=== PATIENT | female | born 1960 ===

== ENCOUNTER 2018-06-24 08:51 | Observation (INO) | payer MEDICARE, MEDICAID ==
[2018-06-24 08:52] VITALS: BMI 23.3
--- NOTE | 2018-06-24 09:48 | C.PDOC ---
History Of Present Illness 58 y/o F c PMHx ESRD on HD p/w suddenly malfunctioning dialysis catheter. Patient states went to dialysis yesterday as scheduled, could not have dialysis performed as her catheter was not functioning. She denies dyspnea or chest pain. PMD Sulaiman Neely/Roman Time Seen by Provider: 06/24/18 09:16 Chief Complaint (Nursing): Medical Clearance History Per: Patient History/Exam Limitations: no limitations Onset/Duration Of Symptoms: Hrs Current Symptoms Are (Timing): Still Present Recent travel outside of the [place]: No Past Medical History Reviewed: Historical Data, Nursing Documentation, Vital Signs Vital Signs: Last Vital Signs Temp 98.2 F 06/24/18 08:59 Pulse 88 06/24/18 08:59 Resp 18 06/24/18 08:59 BP 189/104 H 06/24/18 08:59 Pulse Ox 100 06/24/18 08:59 - Medical History PMH: Anemia, Diabetes, HTN, End Stage Renal Disease, Chronic Kidney Disease, Seizures, TIA Denies: Arthritis, CHF, COPD, HIV, Hypercholesterolemia, Hypothyroidism, Rheumatoid Arthritis Surgical History: Denies: Pacemaker - [facility] APPLIC OF EXTERNAL FIXATOR DEVICE, CARPALS AND METACARPALS (10/18/13) CL FX REDUC-METACAR/CAR (10/18/13) ESOPHAGOGASTRODUODENOSCOPY [EGD] W/CLOSED BIOPSY (03/12/13) HEMODIALYSIS (06/25/14) PERFORMANCE OF URINARY FILTRATION, MULTIPLE (01/12/16) PERFORMANCE OF URINARY FILTRATION, SINGLE (05/18/16) VENOUS CATHETERIZATION FOR RENAL DIALYSIS (11/12/13) Family History: States: Unknown Family Hx - Social History Hx Tobacco Use: No Hx Alcohol Use: No Hx Substance Use: No - Immunization History Hx Tetanus Toxoid Vaccination: No Hx Influenza Vaccination: Yes Hx Pneumococcal Vaccination: Yes Review Of Systems Except As Marked, All Systems Reviewed And Found Negative. Constitutional: Negative for: Fever Cardiovascular: Negative for: Chest Pain Physical Exam - Physical Exam Additional Physical Exam Comments: gen nad head nc eyes no icterus ent mmm neck supple cv reg rate extremities no tenderness skin no rash neuro alert ED Course And Treatment - Laboratory Results Result Diagrams: 06/24/18 10:16 06/24/18 10:16 O2 Sat by Pulse Oximetry: 100 (RA) Pulse Ox Interpretation: Normal Medical Decision Making Medical Decision Making: Progress/Update: 10:49am : Spoke with Dr. Martinez regarding the pt's case. He will order CathFlo. Dr. Fraser ordered dialysis. Dr. Doan accepts patient to medical service. Disposition - Disposition Disposition: HOSPITALIZED Disposition Time: 10:30 Condition: GOOD Forms: [facility] (German) - Clinical Impression Clinical Impression: End stage renal disease, Dialysis catheter clot or failure
--- NOTE | 2018-06-24 10:04 | CP.PCM.CON ---
History of Present Illness - History of Present Illness History of Present Illness: 58 y/o F c PMHx ESRD on HD p/w malfunctioning dialysis catheter. Patient states went to dialysis yesterday as scheduled, could not have dialysis performed as her catheter was not functioning. [facility] Recently enio ligated for steal syndrome with ischemia to digits of right hand. She denies dyspnea or chest pain. No n/v/d. No headache or weakness. No recent illness other than issues related ti access. 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 Receives dialysis at [facility] m,w,f Review of Systems - Constitutional Constitutional: absent: Fever, Lethargy, Malaise - EENT Eyes: absent: Discharge, Dry Eye, Pain Ears: absent: Tinnitus, Dizziness Nose/Mouth/Throat: absent: Nasal Congestion, Nasal Trauma, Nose Pain, Dental Pain - Cardiovascular Cardiovascular: absent: Chest Pain, Dyspnea, Edema - Respiratory Respiratory: absent: Cough, Dyspnea, Wheezing, Stridor - Gastrointestinal Gastrointestinal: absent: Abdominal Pain, Constipation, Cramping, Diarrhea - Genitourinary Genitourinary: absent: Dysuria, Hematuria - Musculoskeletal Musculoskeletal: Muscle Weakness. absent: Muscle Cramps, Neck Pain - Integumentary Integumentary: absent: Pruritus, Rash Additional comments: right hand chronic ischemia - Neurological Neurological: absent: Confusion, Syncope, Tremor - Endocrine Endocrine: Fatigue. absent: Heat Intolorance, Palpitations - Hematologic/Lymphatic Hematologic: absent: Easy Bleeding, Easy Bruising Past Patient History - Tetanus Immunizations Tetanus Immunization: Unknown - Past Medical History & Family History Past Medical History?: Yes - Past Social History Smoking Status: Never Smoked - CARDIAC Hx Congestive Heart Failure: No Hx Hypercholesterolemia: No Hx Hypertension: Yes Hx Pacemaker: No - PULMONARY Hx Chronic Obstructive Pulmonary Disease (COPD): No - NEUROLOGICAL Hx Seizures: Yes Hx Transient Ischemic Attacks (TIA): Yes - HEENT Hx HEENT Problems: Yes - RENAL Hx Chronic Kidney Disease: Yes - ENDOCRINE/METABOLIC Hx Hypothyroidism: No - HEMATOLOGICAL/ONCOLOGICAL Hx Anemia: Yes Hx Human Immunodeficiency Virus (HIV): No - INTEGUMENTARY Hx Dermatological Problems: No - MUSCULOSKELETAL/RHEUMATOLOGICAL Hx Arthritis: No Hx Rheumatoid Arthritis: No - GASTROINTESTINAL Hx Gastrointestinal Disorders: No - GENITOURINARY/GYNECOLOGICAL Hx Genitourinary Disorders: No - PSYCHIATRIC Hx Substance Use: No - SURGICAL HISTORY Hx Surgeries: Yes Other/Comment: left toes amputation 2011. Rt. arm fistula 2003. kidney transplant in 2005. plastic surgery both eyelids mar 1995 - ANESTHESIA Hx Anesthesia: Yes Hx Anesthesia Reactions: No Hx Malignant Hyperthermia: No Meds Allergies/Adverse Reactions: Allergies Allergy/AdvReac Type Severity Reaction Status Date / Time bleach Allergy Intermediate ITCHING Uncoded 06/24/18 09:01 Physical Exam - Constitutional Appears: Non-toxic, Older Than Stated Age, Chronically Ill - Head Exam Head Exam: ATRAUMATIC, NORMAL INSPECTION - Eye Exam Eye Exam: EOMI, Normal appearance - ENT Exam ENT Exam: Mucous Membranes Moist, Normal Oropharynx - Neck Exam Neck exam: Positive for: Normal Inspection. Negative for: Lymphadenopathy, Thyromegaly - Respiratory Exam Respiratory Exam: Clear to Auscultation Bilateral. absent: Rales, Rhonchi - Cardiovascular Exam Cardiovascular Exam: +S1, +S2, Systolic Murmur - GI/Abdominal Exam GI & Abdominal Exam: Normal Bowel Sounds, Soft - Extremities Exam Extremities exam: Negative for: joint swelling, pedal edema - Back Exam Back exam: absent: rash noted, tenderness - Neurological Exam Neurological exam: Alert, Oriented x3 - Psychiatric Exam Psychiatric exam: Normal Affect, Normal Mood - Skin Skin Exam: Dry, Intact Additional comments: Chronic hand skin changes on right Results - Vital Signs Recent Vital Signs: Last Vital Signs Temp 98.2 F 06/24/18 08:59 Pulse 88 06/24/18 08:59 Resp 18 06/24/18 08:59 BP 189/104 H 06/24/18 08:59 Pulse Ox 100 06/24/18 09:48 Assessment & Plan (1) Diabetes Status: Acute (2) Problem with dialysis access Status: Acute (3) Steal syndrome of dialysis vascular access Status: Acute (4) Anemia in ESRD (end-stage renal disease) Status: Acute (5) End stage renal disease Status: Chronic Priority: High (6) Hypertension Status: Chronic Priority: Medium - Assessment and Plan (Free Text) Assessment: Dialysis catheter failure Vascular eval for dialysis access Dialysis today - discussed with dialysis unit Monitor bp Labs requested in ed Further plan once dialysis complete
[2018-06-24 10:23] LABS: BASO # 0.2 K/uL (0.0-0.2); BASO % 3.3 % (0.0-2.0); EOS # 0.2 K/uL (0.0-0.7); EOS % 4.4 % (0.0-4.0); HEMOGLOBIN 12.3 g/dL (11.0-16.0); LYMPH # 1.6 K/uL (1.0-4.3); LYMPH % 29.7 % (20.0-40.0); MEAN CELL VOLUME 83.2 fL (81.0-99.0); MEAN CORPUSCULAR HEMOGLOBIN 27.2 pg (27.0-31.0); MEAN CORPUSCULAR HGB CONC 32.7 g/dL (33.0-37.0); MEAN PLATELET VOLUME 7.5 fL (7.2-11.7); MONO # 0.7 K/uL (0.0-0.8); MONO % 12.5 % (0.0-10.0); NEUT # 2.7 K/uL (1.8-7.0); NEUT % 50.1 % (50.0-75.0); NRBC % 0.2 % (0.0-2.0); PLATELET COUNT 163 K/uL (130-400); RBC 4.51 Mil/uL (3.80-5.20); WHITE BLOOD COUNT 5.3 K/uL (4.8-10.8)
[2018-06-24 10:33] LABS: INR 1.1; PROTHROMBIN TIME 12.2 SECONDS (9.7-12.2)
[2018-06-24 10:37] LABS: ALB/GLOB RATIO 1.3 (1.0-2.1); CALCIUM 10.2 mg/dl (8.6-10.4)
[2018-06-24 11:33] LABS: BASOPHIL 3 % (0-2); EOSINOPHIL 5 % (0-4); LYMPHOCYTE 31 % (20-40); MONOCYTE 14 % (0-10); NEUTROPHIL 47 % (50-75); TOTAL CELLS COUNTED 100
--- NOTE | 2018-06-24 11:33 | CP.PCM.CON ---
History of Present Illness - History of Present Illness History of Present Illness: Vascular Surgery Consult for Dr. Martinez Reason for consult: HD catheter malfunction 58F with PMH that includes ESRD on HD (MWF) who presents to [facility] for complaint of malfunctioning HD catheter. Patient was seen and evaluated in the ED. Patient states that she went to dialysis yesterday and was unable to complete her full session. Patient had permacath placed on 06/13. She has had four sessions of dialysis without any issues until yesterday. Patient has no other complaints at this time. PMH: Anemia, Diabetes, HTN, End Stage Renal Disease on HD, Seizures, TIA PSH: hand surgery, permacath ALL: bleach Review of Systems - Review of Systems All systems: reviewed and no additional remarkable complaints except (as per hpi) Past Patient History - Tetanus Immunizations Tetanus Immunization: Unknown - Past Medical History & Family History Past Medical History?: Yes - Past Social History Smoking Status: Never Smoked - CARDIAC Hx Congestive Heart Failure: No Hx Hypercholesterolemia: No Hx Hypertension: Yes Hx Pacemaker: No - PULMONARY Hx Chronic Obstructive Pulmonary Disease (COPD): No - NEUROLOGICAL Hx Seizures: Yes Hx Transient Ischemic Attacks (TIA): Yes - HEENT Hx HEENT Problems: Yes - RENAL Hx Chronic Kidney Disease: Yes - ENDOCRINE/METABOLIC Hx Hypothyroidism: No - HEMATOLOGICAL/ONCOLOGICAL Hx Anemia: Yes Hx Human Immunodeficiency Virus (HIV): No - INTEGUMENTARY Hx Dermatological Problems: No - MUSCULOSKELETAL/RHEUMATOLOGICAL Hx Arthritis: No Hx Rheumatoid Arthritis: No - GASTROINTESTINAL Hx Gastrointestinal Disorders: No - GENITOURINARY/GYNECOLOGICAL Hx Genitourinary Disorders: No - PSYCHIATRIC Hx Substance Use: No - SURGICAL HISTORY Hx Surgeries: Yes Other/Comment: left toes amputation 2011. Rt. arm fistula 2003. kidney transplant in 2005. plastic surgery both eyelids mar 1995 - ANESTHESIA Hx Anesthesia: Yes Hx Anesthesia Reactions: No Hx Malignant Hyperthermia: No Meds Allergies/Adverse Reactions: Allergies Allergy/AdvReac Type Severity Reaction Status Date / Time bleach Allergy Intermediate ITCHING Uncoded 06/24/18 09:01 - Medications Medications: Current Medications Alteplase, Recombinant (Cathflo 2 Mg Inj) 4 mg IV ONCE ONE Stop: 06/24/18 11:29 Physical Exam - Constitutional Appears: No Acute Distress - Head Exam Head Exam: ATRAUMATIC, NORMOCEPHALIC - Eye Exam Eye Exam: EOMI Pupil Exam: PERRL - ENT Exam ENT Exam: Mucous Membranes Moist - Respiratory Exam Respiratory Exam: NORMAL BREATHING PATTERN Additional comments: R sided permacath on chest - Cardiovascular Exam Cardiovascular Exam: REGULAR RHYTHM - GI/Abdominal Exam GI & Abdominal Exam: Soft. absent: Tenderness - Extremities Exam Extremities exam: Positive for: normal capillary refill. Negative for: calf tenderness - Back Exam Back exam: absent: CVA tenderness (L), CVA tenderness (R) - Neurological Exam Neurological exam: Alert, Oriented x3 - Psychiatric Exam Psychiatric exam: Normal Affect, Normal Mood - Skin Skin Exam: Dry, Intact, Warm Results - Vital Signs Recent Vital Signs: Last Vital Signs Temp 98.2 F 06/24/18 08:59 Pulse 88 06/24/18 08:59 Resp 18 06/24/18 08:59 BP 189/104 H 06/24/18 08:59 Pulse Ox 100 06/24/18 10:49 - Labs Result Diagrams: 06/24/18 10:16 06/24/18 10:16 Labs: Laboratory Results - last 24 hr 06/24/18 06/24/18 06/24/18 10:16 10:16 10:16 WBC 5.3 RBC 4.51 Hgb 12.3 Hct 37.6 MCV 83.2 MCH 27.2 MCHC 32.7 L RDW 17.0 H Plt Count 163 MPV 7.5 Neut % (Auto) 50.1 Lymph % (Auto) 29.7 [place] % (Auto) 12.5 H Eos % (Auto) 4.4 H Baso % (Auto) 3.3 H Neut # (Auto) 2.7 Lymph # (Auto) 1.6 [place] # (Auto) 0.7 Eos # (Auto) 0.2 Baso # (Auto) 0.2 PT 12.2 INR 1.1 APTT 36.0 H Sodium 138 Potassium 5.6 H Chloride 97 L Carbon Dioxide 28 Anion Gap 18 BUN 45 H Creatinine 6.7 H Est GFR ( Amer) 8 Est GFR (Non-Af Amer) 6 Random Glucose 140 H D Calcium 10.2 Phosphorus 6.1 H Magnesium 2.1 Total Bilirubin 0.9 AST 19 ALT 7 L D Alkaline Phosphatase 105 Total Protein 9.0 H Albumin 5.0 D Globulin 4.0 H Albumin/Globulin Ratio 1.3 Blood Type Antibody Screen 06/24/18 10:16 WBC RBC Hgb Hct MCV MCH MCHC RDW Plt Count MPV Neut % (Auto) Lymph % (Auto) [place] % (Auto) Eos % (Auto) Baso % (Auto) Neut # (Auto) Lymph # (Auto) [place] # (Auto) Eos # (Auto) Baso # (Auto) PT INR APTT Sodium Potassium Chloride Carbon Dioxide Anion Gap BUN Creatinine Est GFR ( Amer) Est GFR (Non-Af Amer) Random Glucose Calcium Phosphorus Magnesium Total Bilirubin AST ALT Alkaline Phosphatase Total Protein Albumin Globulin Albumin/Globulin Ratio Blood Type O POSITIVE Antibody Screen Negative Assessment & Plan - Assessment and Plan (Free Text) Assessment: 58 F with ESRD on hD MWF presents for malfunctioning HD catheter Plan: -Cathflo through both ports -if cathflo does not work then OR 06/25 -NPO past MN -F/u Nephrology -Resume dialysis after catheter is functioning -Discussed with Dr. Michelle Nguyễn PGY2 - Date & Time Date: 06/24/18 Time: 12:00
[2018-06-24 11:34] LABS: PLATELET ESTIMATE NORMAL (NORMAL)
[2018-06-24 11:35] LABS: ANISOCYTOSIS SLIGHT; OVALOCYTES SLIGHT; POLYCHROMIC SLIGHT; TEARDROP CELLS SLIGHT
[2018-06-24] MEDS ORDERED: Dextrose 50% SYRINGE Inj (50 ml) IV PRN (16:45)
[2018-06-24] MEDS ORDERED: Glucagon Recombinant 1 mg Inj IM PRN (16:45)
[2018-06-24] MEDS: (Novolog) Insulin Aspart, Recombinant 100 u/ml 10 ml vial SC SCH ×3 (18:00→22:00)
--- NOTE | 2018-06-24 18:05 | CP.PCM.HP ---
History of Present Illness - History of Present Illness History of Present Illness: 58-year-old female with history of anemia history of came in because of suddenly malfunctioning dialysis catheter which was working on the previous dialysis ( TUE_TUE_TUE eventually patient had to come to the emergency room as dialysis did not work so vascular study and call possible change in the catheter if Cathflo will not work eventually patient seen by Dr. templeton Patient was dialyzed for [address] Souza and Dr. Stewart made aware Potassium 5.6 Creatinine 6.7 12 points reviwe of system reviweed not remakrable PMH: Anemia, Diabetes, HTN, End Stage Renal Disease on HD, Seizures, TIA PSH: hand surgery, permacath ALL: bleach Present on Admission - Present on Admission Any Indicators Present on Admission: No Past Patient History - Tetanus Immunizations Tetanus Immunization: Unknown - Past Medical History & Family History Past Medical History?: Yes - Past Social History Smoking Status: Never Smoked - CARDIAC Hx Congestive Heart Failure: No Hx Hypercholesterolemia: No Hx Hypertension: Yes Hx Pacemaker: No - PULMONARY Hx Chronic Obstructive Pulmonary Disease (COPD): No - NEUROLOGICAL Hx Seizures: Yes Hx Transient Ischemic Attacks (TIA): Yes - HEENT Hx HEENT Problems: Yes - RENAL Hx Chronic Kidney Disease: Yes - ENDOCRINE/METABOLIC Hx Hypothyroidism: No - HEMATOLOGICAL/ONCOLOGICAL Hx Anemia: Yes Hx Human Immunodeficiency Virus (HIV): No - INTEGUMENTARY Hx Dermatological Problems: No - MUSCULOSKELETAL/RHEUMATOLOGICAL Hx Arthritis: No Hx Rheumatoid Arthritis: No - GASTROINTESTINAL Hx Gastrointestinal Disorders: No - GENITOURINARY/GYNECOLOGICAL Hx Genitourinary Disorders: No - PSYCHIATRIC Hx Substance Use: No - SURGICAL HISTORY Hx Surgeries: Yes Other/Comment: left toes amputation 2011. Rt. arm fistula 2003. kidney transplant in 2005. plastic surgery both eyelids mar 1995 - ANESTHESIA Hx Anesthesia: Yes Hx Anesthesia Reactions: No Hx Malignant Hyperthermia: No Meds Allergies/Adverse Reactions: Allergies Allergy/AdvReac Type Severity Reaction Status Date / Time bleach Allergy Intermediate ITCHING Uncoded 06/24/18 09:01 Physical Exam - Constitutional Appears: Well - Head Exam Head Exam: ATRAUMATIC, NORMAL INSPECTION, NORMOCEPHALIC - Eye Exam Eye Exam: EOMI, Normal appearance, PERRL Pupil Exam: NORMAL ACCOMODATION, PERRL - ENT Exam ENT Exam: Mucous Membranes Moist, Normal Exam - Neck Exam Neck exam: Positive for: Normal Inspection - Respiratory Exam Respiratory Exam: Decreased Breath Sounds - Cardiovascular Exam Cardiovascular Exam: REGULAR RHYTHM, +S1, +S2 - GI/Abdominal Exam GI & Abdominal Exam: Diminished Bowel Sounds, Soft - Rectal Exam Rectal Exam: Deferred - Neurological Exam Neurological exam: Oriented x3 Results - Vital Signs Recent Vital Signs: Last Vital Signs Temp 98.3 F 06/24/18 15:52 Pulse 87 06/24/18 15:52 Resp 20 06/24/18 15:52 BP 180/78 H 06/24/18 17:31 Pulse Ox 94 L 06/24/18 15:52 - Labs Result Diagrams: 06/24/18 10:16 06/24/18 10:16 Labs: Laboratory Results - last 24 hr 06/24/18 06/24/18 06/24/18 10:16 10:16 10:16 WBC 5.3 RBC 4.51 Hgb 12.3 Hct 37.6 MCV 83.2 MCH 27.2 MCHC 32.7 L RDW 17.0 H Plt Count 163 MPV 7.5 Neut % (Auto) 50.1 Lymph % (Auto) 29.7 [place] % (Auto) 12.5 H Eos % (Auto) 4.4 H Baso % (Auto) 3.3 H Neut # (Auto) 2.7 Lymph # (Auto) 1.6 [place] # (Auto) 0.7 Eos # (Auto) 0.2 Baso # (Auto) 0.2 Neutrophils % (Manual) 47 L Lymphocytes % (Manual) 31 Monocytes % (Manual) 14 H Eosinophils % (Manual) 5 H Basophils % (Manual) 3 H Platelet Estimate Normal Polychromasia Slight Anisocytosis (manual) Slight Tear Drop Cells Slight Ovalocytes Slight PT 12.2 INR 1.1 APTT 36.0 H Sodium 138 Potassium 5.6 H Chloride 97 L Carbon Dioxide 28 Anion Gap 18 BUN 45 H Creatinine 6.7 H Est GFR ( Amer) 8 Est GFR (Non-Af Amer) 6 POC Glucose (mg/dL) Random Glucose 140 H D Calcium 10.2 Phosphorus 6.1 H Magnesium 2.1 Total Bilirubin 0.9 AST 19 ALT 7 L D Alkaline Phosphatase 105 Total Protein 9.0 H Albumin 5.0 D Globulin 4.0 H Albumin/Globulin Ratio 1.3 Blood Type Antibody Screen 06/24/18 06/24/18 10:16 16:27 WBC RBC Hgb Hct MCV MCH MCHC RDW Plt Count MPV Neut % (Auto) Lymph % (Auto) [place] % (Auto) Eos % (Auto) Baso % (Auto) Neut # (Auto) Lymph # (Auto) [place] # (Auto) Eos # (Auto) Baso # (Auto) Neutrophils % (Manual) Lymphocytes % (Manual) Monocytes % (Manual) Eosinophils % (Manual) Basophils % (Manual) Platelet Estimate Polychromasia Anisocytosis (manual) Tear Drop Cells Ovalocytes PT INR APTT Sodium Potassium Chloride Carbon Dioxide Anion Gap BUN Creatinine Est GFR ( Amer) Est GFR (Non-Af Amer) POC Glucose (mg/dL) 153 H Random Glucose Calcium Phosphorus Magnesium Total Bilirubin AST ALT Alkaline Phosphatase Total Protein Albumin Globulin Albumin/Globulin Ratio Blood Type O POSITIVE Antibody Screen Negative Assessment & Plan (1) Diabetes Status: Acute (2) Dialysis catheter clot or failure Status: Acute (3) Problem with dialysis access Status: Acute (4) Steal syndrome of dialysis vascular access Status: Acute (5) End stage renal disease Status: Chronic Priority: High (6) Anemia in ESRD (end-stage renal disease) Status: Acute (7) Headache Status: Acute (8) Hyperkalemia Status: Acute (9) Hypoglycemia Status: Acute (10) Late effect of lacunar infarction Status: Acute (11) Renal failure Status: Acute (12) Renal failure, chronic Status: Acute (13) Sepsis Status: Acute (14) Transient alteration of awareness Status: Acute (15) Transient arterial occlusion Status: Acute Priority: High (16) Transient ischemic attack with other course Status: Inactive Priority: High (17) Wrist fracture Status: Inactive (18) Wrist fracture, right Status: Inactive (19) Anemia Status: Chronic Priority: Medium (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 Fraser met in order for the dialysis Status post 2 hours of dialysis Continue hemodialysis Medication seen Moderate complexity of care May need to change catheter if it will not work Medications reviewed Amlodipine Sensipar PhosLo Renal diet Insulin glargine glargine and aspart
[2018-06-24] MEDS: (Lantus) Insulin Glargine, Recombinant SC SCH (21:35)
--- NOTE | 2018-06-24 23:01 | CON ---
DATE: 06/24/2018 HISTORY OF PRESENT ILLNESS: The patient is seen on an emergency basis in the emergency room at [facility] for evaluation of a clotted or a nonfunctioning catheter. The patient has been on dialysis for a number of years. She had a fistula in the right arm. She recently ligated because she developed ischemic changes of her hand after being utilized for many years. Presently, dialyzed with catheter which has been placed at another hospital. She came here this morning and no preparations unfortunately were made. Thus, we have to improvise and see what is the potassium level. PHYSICAL EXAMINATION GENERAL: She is a thin woman. She has a failed kidney transplant. She has an old access in her arm. She has a catheter on the right side. She looks somewhat cushioned. Catheter does not have good flow. PLAN: The patient has clotted catheter. We will schedule for surgery tomorrow. In the meantime, we will apply TPA in an attempt to open this up and see what we can do to improve the situation. René Martinez Jr., MD [email or web address]
--- NOTE | 2018-06-25 05:16 | CP.PCM.PN ---
Subjective - Date & Time of Evaluation Date of Evaluation: 06/25/18 Time of Evaluation: 05:14 - Subjective Subjective: Surgery Progress Note- Dr. Martinez No new complaints. Received 2hrs of Dialysis yesterday via permacath s/p Cathflo. Throughout dialysis pull became slower however tolerated well. Denies fevers, chills chest pain. Objective - Vital Signs/Intake and Output Vital Signs (last 24 hours): Temp Pulse Resp BP Pulse Ox 98.8 F 72 20 122/74 97 06/25/18 00:00 06/25/18 00:00 06/25/18 00:00 06/25/18 00:00 06/25/18 00:00 - Medications Medications: Current Medications Alteplase, Recombinant (Cathflo 2 Mg Inj) 4 mg IV ONCE ONE Stop: 06/25/18 05:12 Amlodipine Besylate (Norvasc) 10 mg PO DAILY PENDING SALE TO [facility] Calcium Acetate (Phoslo) 667 mg PO TID PENDING SALE TO [facility] Last Admin: 06/24/18 17:31 Dose: 667 mg Carvedilol (Coreg) 25 mg PO BID PENDING SALE TO [facility] Last Admin: 06/24/18 17:31 Dose: 25 mg Cinacalcet (Sensipar) 30 mg PO DAILY PENDING SALE TO [facility] Clonidine HCl (Catapres) 0.3 mg PO HS PENDING SALE TO [facility] Last Admin: 06/24/18 21:34 Dose: 0.3 mg Dextrose (Dextrose 50% Inj) 0 ml IV STAT PRN; Protocol PRN Reason: Hypoglycemia Protocol Dextrose (Glutose 15) 0 gm PO ONCE PRN; Protocol PRN Reason: Hypoglycemia Protocol Glucagon (Glucagen Diagnostic Kit) 0 mg IM STAT PRN; Protocol PRN Reason: Hypoglycemia Protocol Heparin Sodium (Porcine) (Heparin) 5,000 units SC Q12 PENDING SALE TO [facility] Last Admin: 06/24/18 21:36 Dose: 5,000 units Dextrose (Dextrose 5% In Water 1000 Ml) 1,000 mls @ 0 mls/hr IV .Q0M PRN; Protocol PRN Reason: Hypoglycemia Protocol Insulin Aspart (Novolog) 0 unit SC [facility] PENDING SALE TO [facility]; Protocol Last Admin: 06/24/18 21:37 Dose: Not Given Insulin Aspart (Novolog) 0 unit SC [facility] PENDING SALE TO [facility]; Protocol Last Admin: 06/24/18 22:00 Dose: Not Given Insulin Glargine (Lantus) 8 unit SC [facility] Last Admin: 06/24/18 21:35 Dose: 8 units - Labs Labs: 06/24/18 10:16 06/24/18 10:16 PT 12.2 SECONDS (9.7-12.2) 06/24/18 10:16 INR 1.1 06/24/18 10:16 APTT 36.0 SECONDS (21-34) H 06/24/18 10:16 - Constitutional Appears: Non-toxic, No Acute Distress - Head Exam Head Exam: ATRAUMATIC - Eye Exam Eye Exam: EOMI. absent: Scleral icterus - ENT Exam ENT Exam: Mucous Membranes Moist - Neck Exam Additional comments: Permacath in place - Respiratory Exam Respiratory Exam: NORMAL BREATHING PATTERN. absent: Accessory Muscle Use, Respiratory Distress - Cardiovascular Exam Cardiovascular Exam: REGULAR RHYTHM. absent: Bradycardia, Tachycardia - GI/Abdominal Exam GI & Abdominal Exam: Soft. absent: Distended, Rigid, Tenderness - Neurological Exam Neurological Exam: Alert, Awake, Oriented x3 - Skin Skin Exam: Intact, Warm Assessment and Plan - Assessment and Plan (Free Text) Assessment: 58F ESRD on Dialysis w/ malfunctioning permacath Plan: - will use cathflo 1 more time - plan for Permacath exchange on 06/26 - continued management per primary team - discussed w/ Dr. Martinez Surgical attending Merchant [email or web address]
[2018-06-25] MEDS: (Novolog) Insulin Aspart, Recombinant 100 u/ml 10 ml vial SC SCH ×6 (07:47→22:24)
--- NOTE | 2018-06-25 19:17 | CP.PCM.PN ---
Subjective - Date & Time of Evaluation Date of Evaluation: 06/25/18 Time of Evaluation: 09:20 - Subjective Subjective: No nausea No vomiting no fever sleeping woke he rup Objective - Vital Signs/Intake and Output Vital Signs (last 24 hours): Temp Pulse Resp BP Pulse Ox 98.3 F 67 20 162/80 H 96 06/25/18 16:00 06/25/18 16:00 06/25/18 16:00 06/25/18 17:39 06/25/18 16:37 Intake and Output: 06/25/18 06/26/18 18:59 06:59 Intake Total 480 Balance 480 - Medications Medications: Current Medications Amlodipine Besylate (Norvasc) 10 mg PO DAILY [facility] Last Admin: 06/25/18 10:12 Dose: 10 mg Calcium Acetate (Phoslo) 667 mg PO TID [facility] Last Admin: 06/25/18 17:39 Dose: 667 mg Carvedilol (Coreg) 25 mg PO BID [facility] Last Admin: 06/25/18 17:39 Dose: 25 mg Cinacalcet (Sensipar) 30 mg PO DAILY [facility] Last Admin: 06/25/18 10:12 Dose: 30 mg Clonidine HCl (Catapres) 0.3 mg PO HS [facility] Last Admin: 06/24/18 21:34 Dose: 0.3 mg Dextrose (Dextrose 50% Inj) 0 ml IV STAT PRN; Protocol PRN Reason: Hypoglycemia Protocol Dextrose (Glutose 15) 0 gm PO ONCE PRN; Protocol PRN Reason: Hypoglycemia Protocol Glucagon (Glucagen Diagnostic Kit) 0 mg IM STAT PRN; Protocol PRN Reason: Hypoglycemia Protocol Heparin Sodium (Porcine) (Heparin) 5,000 units SC Q12 [facility] Last Admin: 06/25/18 10:12 Dose: 5,000 units Dextrose (Dextrose 5% In Water 1000 Ml) 1,000 mls @ 0 mls/hr IV .Q0M PRN; Teresa col PRN Reason: Hypoglycemia Protocol Insulin Aspart (Novolog) 0 unit SC ACHS [facility]; Protocol Last Admin: 06/25/18 17:10 Dose: Not Given Insulin Glargine (Lantus) 8 unit SC HS [facility] Last Admin: 06/24/18 21:35 Dose: 8 units - Labs Labs: 06/24/18 10:16 06/24/18 10:16 PT 12.2 SECONDS (9.7-12.2) 06/24/18 10:16 INR 1.1 06/24/18 10:16 APTT 36.0 SECONDS (21-34) H 06/24/18 10:16 - Constitutional Appears: Well - Head Exam Head Exam: ATRAUMATIC, NORMAL INSPECTION, NORMOCEPHALIC - Eye Exam Eye Exam: EOMI, Normal appearance, PERRL Pupil Exam: NORMAL ACCOMODATION, PERRL - ENT Exam ENT Exam: Mucous Membranes Moist, Normal Exam - Neck Exam Neck Exam: Full ROM, Normal Inspection. 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 Status: Acute (5) End stage renal disease Status: Chronic (6) Anemia in ESRD (end-stage renal disease) Status: Acute (7) Headache Status: Acute (8) Hyperkalemia Status: Acute (9) Hypoglycemia Status: Acute (10) Late effect of lacunar infarction Status: Acute (11) Renal failure Status: Acute (12) Renal failure, chronic Status: Acute (13) Sepsis Status: Acute (14) Transient alteration of awareness Status: Acute (15) Transient arterial occlusion Status: Acute (16) Anemia Status: Chronic (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, managed as type 2 Status: Chronic (18) End stage renal disease on dialysis Status: Chronic (19) Hyperglycemia Status: Chronic (20) Hypertension Status: Chronic (21) Peripheral motor neuropathy Status: Chronic (22) Type 2 diabetes mellitus Status: Chronic - Assessment and Plan (Free Text) Plan: No fever patient received 2 hours of dialysis yesterday no need to change christine ter status post [id number] patient claims somebody also came in for the medicine and the catheter Cathflo again done today If patient's catheter work nicely will consider discharging the patient home Follow-up with vascular surgery Follow-up with the renal Moderate complexity of care Plan of care discussed with the patient's No family member at bedside vitals reviewed labs reviewed medications reviewed catapress coreg dextrose glucagen diagnostic kit glutose 15 heparin lantus [facility] novolog phoslo sensipar
[2018-06-25] MEDS: (Lantus) Insulin Glargine, Recombinant SC SCH (22:25)
[2018-06-26 06:44] LABS: BLOOD UREA NITROGEN 41 mg/dL (7-17); CALCIUM 9.4 mg/dl (8.6-10.4); GFR NON-AFRICAN AMERICAN 6
[2018-06-26 06:45] LABS: INR 1.1
[2018-06-26 07:34] LABS: BASO # 0.1 K/uL (0.0-0.2); EOS # 0.2 K/uL (0.0-0.7); HEMOGLOBIN 11.1 g/dL (11.0-16.0); LYMPH # 1.6 K/uL (1.0-4.3); LYMPH % 42.5 % (20.0-40.0); MEAN CELL VOLUME 82.4 fL (81.0-99.0); MEAN CORPUSCULAR HEMOGLOBIN 26.7 pg (27.0-31.0); MEAN CORPUSCULAR HGB CONC 32.4 g/dL (33.0-37.0); MEAN PLATELET VOLUME 7.6 fL (7.2-11.7); MONO # 0.4 K/uL (0.0-0.8); MONO % 11.9 % (0.0-10.0); NEUT # 1.3 K/uL (1.8-7.0); NEUT % 35.6 % (50.0-75.0); NRBC % 0.1 % (0.0-2.0); PLATELET COUNT 149 K/uL (130-400); RBC 4.14 Mil/uL (3.80-5.20); RED CELL DISTRIBUTION WIDTH 16.4 % (11.5-14.5); WHITE BLOOD COUNT 3.7 K/uL (4.8-10.8)
[2018-06-26] MEDS: (Novolog) Insulin Aspart, Recombinant 100 u/ml 10 ml vial SC SCH ×3 (08:13→17:40)
[2018-06-26 08:54] LABS: ANISOCYTOSIS SLIGHT; BASOPHIL 3 % (0-2); EOSINOPHIL 8 % (0-4); HYPOCHROMIC SLIGHT; LYMPHOCYTE 49 % (20-40); MONOCYTE 11 % (0-10); NEUTROPHIL 29 % (50-75); PLATELET ESTIMATE NORMAL (NORMAL); POIKILOCYTOSIS SLIGHT; TOTAL CELLS COUNTED 100
--- NOTE | 2018-06-26 12:18 | CP.PCM.PN ---
Subjective - Date & Time of Evaluation Date of Evaluation: 06/26/18 Time of Evaluation: 12:15 - Subjective Subjective: s/p 2 hours dialysis 06/24 TPA given now seen on dialysis- UF 2500ml tolerated so far no functional AV access no c/o n, v, fevers, chills, HAs, dyspnea Objective - Vital Signs/Intake and Output Vital Signs (last 24 hours): Temp Pulse Resp BP Pulse Ox 97.6 F 63 18 118/75 98 06/26/18 09:15 06/26/18 09:15 06/26/18 09:15 06/26/18 11:45 06/26/18 09:15 Intake and Output: 06/26/18 06/26/18 06:59 18:59 Intake Total 250 Balance 250 - Medications Medications: Current Medications Amlodipine Besylate (Norvasc) 10 mg PO DAILY [facility] Last Admin: 06/26/18 10:57 Dose: Not Given Calcium Acetate (Phoslo) 667 mg PO TID [facility] Last Admin: 06/26/18 10:58 Dose: Not Given Carvedilol (Coreg) 25 mg PO BID [facility] Last Admin: 06/26/18 10:57 Dose: Not Given Cinacalcet (Sensipar) 30 mg PO DAILY [facility] Last Admin: 06/26/18 10:58 Dose: Not Given Clonidine HCl (Catapres) 0.3 mg PO HS [facility] Last Admin: 06/25/18 21:41 Dose: 0.3 mg Dextrose (Dextrose 50% Inj) 0 ml IV STAT PRN; Protocol PRN Reason: Hypoglycemia Protocol Dextrose (Glutose 15) 0 gm PO ONCE PRN; Protocol PRN Reason: Hypoglycemia Protocol Glucagon (Glucagen Diagnostic Kit) 0 mg IM STAT PRN; Protocol PRN Reason: Hypoglycemia Protocol Heparin Sodium (Porcine) (Heparin) 5,000 units SC Q12 [facility] Last Admin: 06/26/18 10:57 Dose: Not Given Heparin Sodium (Porcine) (Heparin (For Dialysis)) 4,500 units IVP MWF [facility] Dextrose (Dextrose 5% In Water 1000 Ml) 1,000 mls @ 0 mls/hr IV .Q0M PRN; Protocol PRN Reason: Hypoglycemia Protocol Insulin Aspart (Novolog) 0 unit SC ACHS [facility]; Protocol Last Admin: 06/26/18 11:52 Dose: Not Given Insulin Glargine (Lantus) 8 unit SC HS [facility] Last Admin: 06/25/18 22:25 Dose: 8 units - Labs Labs: 06/26/18 05:40 06/26/18 05:40 PT 12.0 SECONDS (9.7-12.2) 06/26/18 05:40 INR 1.1 06/26/18 05:40 APTT 38.0 SECONDS (21-34) H 06/26/18 05:40 - Constitutional Appears: No Acute Distress, Chronically Ill - Head Exam Head Exam: ATRAUMATIC, NORMAL INSPECTION - Eye Exam Eye Exam: EOMI, Normal appearance - Neck Exam Neck Exam: Normal Inspection. absent: Tenderness - Respiratory Exam Respiratory Exam: Clear to Ausculation Bilateral, NORMAL BREATHING PATTERN - Cardiovascular Exam Cardiovascular Exam: REGULAR RHYTHM, +S1 - GI/Abdominal Exam GI & Abdominal Exam: Soft. absent: Tenderness - Extremities Exam Extremities Exam: Normal Inspection. absent: Tenderness - Neurological Exam Neurological Exam: Awake, CN II-XII Intact - Skin Skin Exam: Dry, Warm Assessment and Plan (1) Diabetes Status: Acute (2) Dialysis catheter clot or failure Status: Acute (3) Steal syndrome of dialysis vascular access Status: Acute (4) End stage renal disease Status: Chronic - Assessment and Plan (Free Text) Plan: same dialysis MWF eventually re-evaluate for AV access same meds moderate UF goal 2500ml
--- NOTE | 2018-06-26 12:18 | CP.PCM.PCO ---
Physician Communication Note - Physician Communication Note Physician Communication Note: Currently undergoing dialysis w/ Permacath no issues. Cancel OR
--- NOTE | 2018-06-26 13:58 | CP.PCM.PN ---
Subjective - Date & Time of Evaluation Date of Evaluation: 06/26/18 Time of Evaluation: 13:58 - Subjective Subjective: alert and orientedx3, denies any sob or chest pains, s/p HD today. Objective - Vital Signs/Intake and Output Vital Signs (last 24 hours): Temp Pulse Resp BP Pulse Ox 97.2 F L 70 16 126/83 97 06/26/18 12:15 06/26/18 12:15 06/26/18 12:15 06/26/18 12:15 06/26/18 13:00 Intake and Output: 06/26/18 06/26/18 06:59 18:59 Intake Total 250 Balance 250 - Medications Medications: Current Medications Amlodipine Besylate (Norvasc) 10 mg PO DAILY [facility] Last Admin: 06/26/18 10:57 Dose: Not Given Calcium Acetate (Phoslo) 667 mg PO TID [facility] Last Admin: 06/26/18 10:58 Dose: Not Given Carvedilol (Coreg) 25 mg PO BID [facility] Last Admin: 06/26/18 10:57 Dose: Not Given Cinacalcet (Sensipar) 30 mg PO DAILY [facility] Last Admin: 06/26/18 10:58 Dose: Not Given Clonidine HCl (Catapres) 0.3 mg PO HS [facility] Last Admin: 06/25/18 21:41 Dose: 0.3 mg Dextrose (Dextrose 50% Inj) 0 ml IV STAT PRN; Protocol PRN Reason: Hypoglycemia Protocol Dextrose (Glutose 15) 0 gm PO ONCE PRN; Protocol PRN Reason: Hypoglycemia Protocol Glucagon (Glucagen Diagnostic Kit) 0 mg IM STAT PRN; Protocol PRN Reason: Hypoglycemia Protocol Heparin Sodium (Porcine) (Heparin) 5,000 units SC Q12 [facility] Last Admin: 06/26/18 10:57 Dose: Not Given Heparin Sodium (Porcine) (Heparin (For Dialysis)) 4,500 units IVP MWF [facility] Dextrose (Dextrose 5% In Water 1000 Ml) 1,000 mls @ 0 mls/hr IV .Q0M PRN; Pr otocol PRN Reason: Hypoglycemia Protocol Insulin Aspart (Novolog) 0 unit SC ACHS [facility]; Protocol Last Admin: 06/26/18 11:52 Dose: Not Given Insulin Glargine (Lantus) 8 unit SC [facility] Last Admin: 04/28/19 22:25 Dose: 8 units - Labs Labs: 06/26/18 05:40 06/26/18 05:40 PT 12.0 SECONDS (9.7-12.2) 06/26/18 05:40 INR 1.1 06/26/18 05:40 APTT 38.0 SECONDS (21-34) H 06/26/18 05:40 Assessment and Plan - Assessment and Plan (Free Text) Assessment: 58 year old female admitted with dialysis catheter malfunction, seen and examined. Alert and oriented x3, tolerated HD well today, cleared by surgery. Discussed with DR Kristi Doan, plan to discharge home today. Advised to continue HD, MWF and follow up with PMD in 1 week.
[2018-06-26 15:28] LABS: HEPATITIS B SURFACE AG Negative (NEGATIVE)
--- NOTE | 2018-06-26 17:04 | CP.PCM.DIS ---
Provider - Provider Date of Admission: 06/24/18 11:59 Attending physician: Trinidad Doan MD Consults: 06/24/18 10:01 Nephrology Consult Stat Comment: Consulting Provider: Aris Fraser Consulting Physician: Aris Farser Reason for Consult: dialysis 06/24/18 11:31 General Surgery Consult Stat Comment: Consulting Provider: René Martinez Jr. Consulting Physician: René Martinez Jr. 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 Status: Acute (5) End stage renal disease Status: Chronic Priority: High (6) Anemia in ESRD (end-stage renal disease) Status: Acute (7) Headache Status: Acute (8) Hyperkalemia Status: Acute (9) Hypoglycemia Status: Acute (10) Late effect of lacunar infarction Status: Acute (11) Renal failure Status: Acute (12) Renal failure, chronic Status: Acute (13) Sepsis Status: Acute (14) Transient alteration of awareness Status: Acute (15) Transient arterial occlusion Status: Acute Priority: High (16) Anemia Status: Chronic Priority: Medium (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, managed as type 2 Status: Chronic Priority: High (18) End stage renal disease on dialysis Status: Chronic Priority: Medium (19) Hyperglycemia Status: Chronic (20) Hypertension Status: Chronic Priority: Medium (21) Peripheral motor neuropathy Status: Chronic (22) Type 2 diabetes mellitus Status: Chronic Priority: Medium Hospital Course - Lab Results Lab Results: Most Recent Lab Values WBC 3.7 K/uL (4.8-10.8) L 06/26/18 05:40 RBC 4.14 Mil/uL (3.80-5.20) 06/26/18 05:40 Hgb 11.1 g/dL (11.0-16.0) 06/26/18 05:40 Hct 34.1 % (34.0-47.0) 06/26/18 05:40 MCV 82.4 fL (81.0-99.0) 06/26/18 05:40 MCH 26.7 pg (27.0-31.0) L 06/26/18 05:40 MCHC 32.4 g/dL (33.0-37.0) L 06/26/18 05:40 RDW 16.4 % (11.5-14.5) H 06/26/18 05:40 Plt Count 149 K/uL (130-400) 06/26/18 05:40 MPV 7.6 fL (7.2-11.7) 06/26/18 05:40 Neut % (Auto) 35.6 % (50.0-75.0) L 06/26/18 05:40 Lymph % (Auto) 42.5 % (20.0-40.0) H 06/26/18 05:40 Thayer % (Auto) 11.9 % (0.0-10.0) H 06/26/18 05:40 Eos % (Auto) 6.0 % (0.0-4.0) H 06/26/18 05:40 Baso % (Auto) 4.0 % (0.0-2.0) H 06/26/18 05:40 Neut # (Auto) 1.3 K/uL (1.8-7.0) L 06/26/18 05:40 Lymph # (Auto) 1.6 K/uL (1.0-4.3) 06/26/18 05:40 Thayer # (Auto) 0.4 K/uL (0.0-0.8) 06/26/18 05:40 Eos # (Auto) 0.2 K/uL (0.0-0.7) 06/26/18 05:40 Baso # (Auto) 0.1 K/uL (0.0-0.2) 06/26/18 05:40 Neutrophils % (Manual) 29 % (50-75) L 06/26/18 05:40 Lymphocytes % (Manual) 49 % (20-40) H 06/26/18 05:40 Monocytes % (Manual) 11 % (0-10) H 06/26/18 05:40 Eosinophils % (Manual) 8 % (0-4) H 06/26/18 05:40 Basophils % (Manual) 3 % (0-2) H 06/26/18 05:40 Platelet Estimate Normal (NORMAL) 06/26/18 05:40 Polychromasia Slight 06/24/18 10:16 Hypochromasia (manual) Slight 06/26/18 05:40 Poikilocytosis (manual Slight 06/26/18 05:40 Anisocytosis (manual) Slight 06/26/18 05:40 Tear Drop Cells Slight 06/24/18 10:16 Ovalocytes Slight 06/24/18 10:16 PT 12.0 SECONDS (9.7-12.2) 06/26/18 05:40 INR 1.1 06/26/18 05:40 APTT 38.0 SECONDS (21-34) H 06/26/18 05:40 Sodium 136 mmol/L (132-148) 06/26/18 05:40 Potassium 5.2 mmol/L (3.6-5.2) 06/26/18 05:40 Chloride 95 mmol/L (98-107) L 06/26/18 05:40 Carbon Dioxide 29 mmol/L (22-30) 06/26/18 05:40 Anion Gap 17 (10-20) 06/26/18 05:40 BUN 41 mg/dL (7-17) H 06/26/18 05:40 Creatinine 6.8 mg/dL (0.7-1.2) H 06/26/18 05:40 Est GFR ( Amer) 7 06/26/18 05:40 Est GFR (Non-Af Amer) 6 06/26/18 05:40 POC Glucose (mg/dL) 254 mg/dL (65-110) H 06/26/18 16:45 Random Glucose 172 mg/dL (65-105) H D 06/26/18 05:40 Calcium 9.4 mg/dl (8.6-10.4) 06/26/18 05:40 Phosphorus 6.1 mg/dL (2.5-4.5) H 06/24/18 10:16 Magnesium 2.1 mg/dL (1.6-2.3) 06/24/18 10:16 Total Bilirubin 0.9 mg/dL (0.2-1.3) 06/24/18 10:16 AST 19 U/L (14-36) 06/24/18 10:16 ALT 7 U/L (9-52) L D 06/24/18 10:16 Alkaline Phosphatase 105 U/L (38-126) 06/24/18 10:16 Total Protein 9.0 g/dL (6.3-8.3) H 06/24/18 10:16 Albumin 5.0 g/dL (3.5-5.0) D 06/24/18 10:16 Globulin 4.0 gm/dL (2.2-3.9) H 06/24/18 10:16 Albumin/Globulin Ratio 1.3 (1.0-2.1) 06/24/18 10:16 Hep Bs Antigen Negative (NEGATIVE) 06/26/18 05:40 Blood Type O POSITIVE 06/26/18 05:40 Antibody Screen Negative 06/26/18 05:40 Discharge Exam - Head Exam Head Exam: ATRAUMATIC, NORMAL INSPECTION - Eye Exam Eye Exam: Conjunctival injection Pupil Exam: NORMAL ACCOMODATION, PERRL - ENT Exam ENT Exam: Mucous Membranes Moist - Neck Exam Neck exam: Normal Inspection - Respiratory Exam Respiratory Exam: Decreased Breath Sounds - Cardiovascular Exam Cardiovascular Exam: REGULAR RHYTHM, +S1, +S2 - GI/Abdominal Exam GI & Abdominal Exam: Diminished Bowel Sounds, Soft - Rectal Exam Rectal Exam: Deferred - Neurological Exam Neurological exam: Oriented x3 Discharge Plan - Follow Up Plan Condition: GOOD Disposition: HOME/ ROUTINE Instructions: Chronic Kidney Disease (DC), Dialysis and Diet Additional Instructions: continue with HD , MWF as scheduled follow up with PMD in 1 week Referrals: Marcela Doan MD [Staff Provider] -
[2018-06-26 17:10] VITALS: PULSE 77; RESP 20; TEMP 97.3; O2SAT 96
[2018-06-26 17:41] VITALS: BP 131/76
== END 2018-06-26 19:56 | disposition home or self-care (01) ==
LOC: C.ER 08:51 → C.9E 11:59 → C.3T 12:29
PROVIDERS: ADMIT Internal Medicine Nephrology; ATTEND Internal Medicine Nephrology
DX: T82.41XA Breakdown (mechanical) of vascular dialysis catheter, initial encounter (principal); I12.0 Hypertensive chronic kidney disease with stage 5 chronic kidney disease or end stage renal disease; E11.22 Type 2 diabetes mellitus with diabetic chronic kidney disease; E87.5 Hyperkalemia; N18.6 End stage renal disease; T86.12 Kidney transplant failure; Z86.73 Personal history of transient ischemic attack (TIA), and cerebral infarction without residual deficits; Z99.2 Dependence on renal dialysis; D63.1 Anemia in chronic kidney disease
CPT/HCPCS: 36415; 80048; 80053; 82948; 83735; 84100; 85025; 85610; 85730; 86850; 86900; 87340; 99284; G0257; G0378; J1644; J2997